=== PATIENT | male | born 1995 | race African-American/Black ===

== ENCOUNTER 2019-03-10 13:27 | Emergency (ER) | payer MEDICAID ==
[~2019-03-10] VITALS: Ht 180.3 cm; Wt 81.0 kg
[~2019-03-10 13:27] MED LIST: ACET500C5 PO; CEPH-443 PO; IBUP-1542 PO; ONDA4TAB14 PO; SULF1TAB31 PO
[2019-03-10 13:31] VITALS: Ht 180.3 cm; Wt 81.0 kg
[2019-03-10 19:19] VITALS: BP 140/84; PULSE 57; RESP 18
== END 2019-03-10 19:21 | disposition home or self-care (01) ==
LOC: FTE 13:27
DX: F10.920 Alcohol use, unspecified with intoxication, uncomplicated (principal)
CPT/HCPCS: 80053; 81001; 82962; 83690; 85025; J2405; J7030; Z7610; 96374; 96375